=== PATIENT | male | born 1995 | race Caucasian/White ===

== ENCOUNTER 2018-02-25 21:15 | Emergency (ER) | payer OTHER ==
[2018-02-25 21:57] LABS: BILIRUBIN,URINE NEGATIVE (NEG); CLARITY,URINE TURBID; COLOR,URINE YELLOW; GLUCOSE,URINE NEGATIVE (NEG); NITRITE,URINE NEGATIVE (NEG); PH,URINE 7.5; PROTEIN,URINE NEGATIVE (NEG-TRACE)
[2018-02-25 22:04] LABS: AMORPHOUS SEDIMENT,UR PRESENT /HPF; BACTERIA,URINE 0 /HPF (0-FEW); BARBITURATES NEG (NEG); BENZODIAZEPINES NEG (NEG); CANNABINOIDS POS (NEG); COCAINE NEG (NEG); METHADONE NEG (NEG); OPIATES NEG (NEG); PHENCYCLIDINE NEG (NEG); RBC,URINE 0 /HPF (0-2); WBC,URINE 0 /HPF (0-4)
[2018-02-25 22:07] LABS: ADD MAN DIFF? NO; AMPHETAMINE/METHAMPHETAMINE NEG (NEG); ETHANOL, URINE NEG (NEG)
[2018-02-25 22:14] LABS: BASO % 0 % (0-3); EOS % 0 % (0-3); HEMATOCRIT 43.1 % (39.0-53.0); HEMOGLOBIN 14.7 g/dL (13.0-17.5); LYMPH # 0.7 x10^3/uL (1.0-4.8); LYMPH % 13 % (24-48); MEAN CORPUSCULAR HEMOGLOBIN 30 pg (25-35); MEAN CORPUSCULAR HGB CONC 34 g/dL (31-37); MEAN CORPUSCULAR VOLUME 87 fL (79-100); MONO # 0.7 x10^3/uL (0.0-1.1); MONO % 12 % (0-9); NEUT # 4.2 x10^3uL (1.8-7.7); NEUT % 75 % (31-73); PLATELET COUNT 202 x10^3/uL (140-400); RED BLOOD COUNT 4.94 x10^6/uL (4.30-5.70); RED CELL DISTRIBUTION WIDTH 12.5 % (11.5-14.5); WHITE BLOOD COUNT 5.5 x10^3/uL (4.0-11.0)
[2018-02-25 22:21] LABS: INR 1.1 (0.8-1.1); PARTIAL THROMBOPLASTIN TIME 24 SEC (24-38); PROTHROMBIN TIME PATIENT 13.2 SEC (11.7-14.0)
[2018-02-25] MEDS: IV NORMAL SALINE 1000ML BAG 1,000 ML IV (22:30)
[2018-02-25 22:33] LABS: ANION GAP 8 (6-14); BLOOD UREA NITROGEN 18 mg/dL (8-26); BUN/CREATININE RATIO 16 (6-20); CALCIUM 9.4 mg/dL (8.5-10.1); CARBON DIOXIDE 30 mmol/L (21-32); CHLORIDE 104 mmol/L (98-107); CREATININE 1.1 mg/dL (0.7-1.3); GFR 84.5; GLUCOSE 126 mg/dL (70-99); SODIUM 142 mmol/L (136-145)
[2018-02-25 22:37] LABS: ALBUMIN 4.3 g/dL (3.4-5.0); ALBUMIN/GLOBULIN RATIO 1.2 (1.0-1.7); ALK PHOS 61 U/L (46-116); ALT (SGPT) 102 U/L (16-63); AST (SGOT) 39 U/L (15-37); TOTAL BILIRUBIN 0.3 mg/dL (0.2-1.0); TOTAL PROTEIN 7.9 g/dL (6.4-8.2)
[2018-02-25 22:38] LABS: TROPONINI < 0.017 ng/mL (0.000-0.055)
[2018-02-25 22:44] LABS: CKMB INDEX 0.2 % (0-4); CKMB MASS 0.8 ng/mL (0.0-3.6); CREATINE KINASE 384 U/L (39-308)
== END 2018-02-25 23:24 | disposition home or self-care (01) ==
LOC: ER 21:15
DX: R55 Syncope and collapse (principal); F12.10 Cannabis abuse, uncomplicated; R51 Headache; F17.210 Nicotine dependence, cigarettes, uncomplicated; F10.10 Alcohol abuse, uncomplicated; Z88.0 Allergy status to penicillin
CPT/HCPCS: 36415; 70450; 71045; 80053; 80307; 81001; 82553; 84484; 85025; 85610; 85730; 93005; 96360; 99285-25; J7030

== ENCOUNTER 2018-08-11 03:11 | Emergency (ER) | payer OTHER ==
[~2018-08-11] VITALS: Ht 188 cm; Wt 102.1 kg
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
[2018-08-11] MEDS ORDERED: IOHEXOL 300 MG/ML 100ML VIAL. IV ONE (04:00)
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
[2018-08-11 04:04] LABS: BASO # 0.1 x10^3/uL (0.0-0.2); BASO % 1 % (0-3); EOS % 1 % (0-3); HEMATOCRIT 45.8 % (39.0-53.0); HEMOGLOBIN 15.9 g/dL (13.0-17.5); LYMPH # 1.3 x10^3/uL (1.0-4.8); LYMPH % 24 % (24-48); MEAN CORPUSCULAR HEMOGLOBIN 32 pg (25-35); MEAN CORPUSCULAR HGB CONC 35 g/dL (31-37); MEAN CORPUSCULAR VOLUME 92 fL (79-100); MONO # 0.7 x10^3/uL (0.0-1.1); MONO % 13 % (0-9); NEUT # 3.4 x10^3uL (1.8-7.7); NEUT % 62 % (31-73); PLATELET COUNT 217 x10^3/uL (140-400); RED BLOOD COUNT 4.97 x10^6/uL (4.30-5.70); RED CELL DISTRIBUTION WIDTH 13.7 % (11.5-14.5); WHITE BLOOD COUNT 5.4 x10^3/uL (4.0-11.0)
[2018-08-11] MEDS ORDERED: CONTRAST GIVEN. MC PRN (04:15)
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
[2018-08-11 04:18] LABS: CALCIUM 8.7 mg/dL (8.5-10.1); GFR 94.3; POTASSIUM 3.5 mmol/L (3.5-5.1)
[2018-08-11] MEDS ORDERED: IV NORMAL SALINE 1000ML BAG 1,000 ML IV ONE ×2 (04:30→04:45)
[2018-08-11 04:34] LABS: ALBUMIN 3.8 g/dL (3.4-5.0); ALBUMIN/GLOBULIN RATIO 0.9 (1.0-1.7); TOTAL BILIRUBIN 0.2 mg/dL (0.2-1.0); TOTAL PROTEIN 7.9 g/dL (6.4-8.2)
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
[2018-08-11 05:59] LABS: BILIRUBIN,URINE NEGATIVE (NEG); CLARITY,URINE CLEAR; COLOR,URINE YELLOW; NITRITE,URINE NEGATIVE (NEG); PROTEIN,URINE NEGATIVE (NEG-TRACE); UROBILINOGEN,URINE 0.2 mg/dL (0.2 mg/dL)
[2018-08-11 06:08] LABS: AMPHETAMINE/METHAMPHETAMINE NEG (NEG); BARBITURATES NEG (NEG); BENZODIAZEPINES NEG (NEG); CANNABINOIDS POS (NEG); COCAINE NEG (NEG); METHADONE NEG (NEG); OPIATES NEG (NEG); PHENCYCLIDINE NEG (NEG)
--- NOTE | 2018-08-11 06:13 | EKG ---
[facility] [address] [place] [address] Test Date: 2018-08-11 Test Time: 05:17:40 Pat Name: ZHANG MELISSA Department: Room: Gender: M Technical Sales Director: YOLANDA : 1995 Requested By: SHY ACOSTA Order Number: [id number] Reading MD: Measurements Intervals [place] Rate: 78 P: -90 [place]: 122 QRS: 43 QRSD: 86 T: 59 QT: 384 QTc: 441 Interpretive Statements SUPRAVENTRICULAR RHYTHM NON SPECIFIC ST-T ABNORMALITY (ELEVATION) NON SPECIFIC ST DEPRESSION BORDERLINE ECG No previous ECG available for comparison
[2018-08-11 06:22] LABS: BACTERIA,URINE 0 /HPF (0-FEW); RBC,URINE 0 /HPF (0-2); SQUAMOUS EPITHELIAL CELL,UR OCC /LPF; WBC,URINE 0 /HPF (0-4)
[2018-08-11 07:19] VITALS: BP 113/69
[2018-08-11] MEDS ORDERED: ACETAMINOPHEN 500 MG TABLET PO PRN (09:00)
[2018-08-11] MEDS ORDERED: ACETAMINOPHEN/CODEINE 300/30MG TABLET. PO PRN (09:00)
[2018-08-11] MEDS ORDERED: IBUPROFEN 200 MG TABLET. PO PRN (09:00)
[2018-08-11] MEDS ORDERED: diphenhydrAMINE HCL 25 MG CAPSULE PO PRN (09:00)
[2018-08-11] MEDS ORDERED: KETOROLAC 15 MG/ML VIAL. IV PRN (09:00)
[2018-08-11] MEDS ORDERED: ONDANSETRON PF 4 MG/2 ML VIAL. IV PRN (09:00)
[2018-08-11] MEDS ORDERED: chlordiazePOXIDE HCL 25 MG CAPSULE PO PRN (09:00)
[2018-08-11] MEDS ORDERED: CALCIUM CARBONATE 500 MG TAB.CHEW PO PRN (09:00)
[2018-08-11] MEDS ORDERED: ONDANSETRON ODT 4 MG TAB.RAPDIS. PO PRN (09:00)
[2018-08-11] MEDS ORDERED: NICOTINE 21MG PATCH. TD PRN (09:00)
[2018-08-11] MEDS ORDERED: HYDROcodone/APAP 5/325MG 1 TAB TABLET PO PRN (09:00)
[2018-08-11] MEDS ORDERED: IV NORMAL SALINE 1000ML BAG 1,000 ML IV SCH (09:00)
== END 2018-08-11 07:35 | disposition home or self-care (01) ==
LOC: ER 03:11 → 6 SOUTH 04:54 → UNDOADMIN 04:54 → ER 07:35
DX: M62.82 Rhabdomyolysis (principal); F32.9 Major depressive disorder, single episode, unspecified; R45.851 Suicidal ideations; F10.129 Alcohol abuse with intoxication, unspecified; Y90.9 Presence of alcohol in blood, level not specified; F12.10 Cannabis abuse, uncomplicated; B20 Human immunodeficiency virus [HIV] disease; R79.89 Other specified abnormal findings of blood chemistry; R55 Syncope and collapse; R51 Headache; J32.0 Chronic maxillary sinusitis; M54.89 Other dorsalgia; R10.9 Unspecified abdominal pain; Z88.0 Allergy status to penicillin; V89.9XXA Person injured in unspecified vehicle accident, initial encounter; Y92.415 Exit ramp or entrance ramp of street or highway as the place of occurrence of the external cause; Y93.89 Activity, other specified; Y99.8 Other external cause status
CPT/HCPCS: 36415; 70450; 71045; 71260; 72125; 74177; 80053; 80307; 81001; 82550; 84484; 85025; 93005; 96360; 99285; G0480; J7030; Q9967; G0479